=== PATIENT | male | born 1985 | race Caucasian/White ===

== ENCOUNTER 2018-11-19 05:51 | Emergency (ER) | payer MEDICAID ==
[~2018-11-19] VITALS: Ht 172.7 cm; Wt 82.0 kg
[~2018-11-19 05:51] MED LIST: MEDICAL MARIJUANA
[2018-11-19 05:56] VITALS: BP 154/105
== END 2018-11-19 06:37 | disposition left against medical advice (07) ==
LOC: ER 05:52
DX: R05 Cough (principal); R09.89 Other specified symptoms and signs involving the circulatory and respiratory systems; J00 Acute nasopharyngitis [common cold]; Z53.21 Procedure and treatment not carried out due to patient leaving prior to being seen by health care provider

== ENCOUNTER 2020-02-07 01:14 | Emergency (ER) | payer MEDICAID ==
[~2020-02-07] VITALS: Ht 172.7 cm; Wt 79.0 kg
[2020-02-07] MEDS ORDERED: HYDR-4353 PO (02:19)
[2020-02-07] MEDS ORDERED: IBUP-1984 PO (02:19)
[2020-02-07 02:38] VITALS: BP 149/117
== END 2020-02-07 02:38 | disposition home or self-care (01) ==
LOC: ER 01:14
DX: S13.9XXA Sprain of joints and ligaments of unspecified parts of neck, initial encounter (principal); S20.212A Contusion of left front wall of thorax, initial encounter; S19.9XXA Unspecified injury of neck, initial encounter; M50.222 Other cervical disc displacement at C5-C6 level; F17.200 Nicotine dependence, unspecified, uncomplicated; F12.90 Cannabis use, unspecified, uncomplicated; F15.90 Other stimulant use, unspecified, uncomplicated; Z72.89 Other problems related to lifestyle; Z79.899 Other long term (current) drug therapy; W18.30XA Fall on same level, unspecified, initial encounter; Y93.89 Activity, other specified; Y92.89 Other specified places as the place of occurrence of the external cause; Y99.8 Other external cause status
CPT/HCPCS: 70450; 71045; 72125; 99285